=== PATIENT | female | born 1980 | race Caucasian/White ===

== ENCOUNTER 2017-10-17 08:53 | Observation (INO) | payer MEDICAID, SELFPAY ==
[~2017-10-17] VITALS: Ht 163.8 cm; Wt 84.4 kg
== END 2017-10-17 12:09 | disposition home or self-care (01) ==
LOC: SPU 08:53
PROVIDERS: ADMIT Obstetrics & Gynecology; ATTEND Obstetrics & Gynecology
DX: O48.0 Post-term pregnancy (principal); Z3A.40 40 weeks gestation of pregnancy
CPT/HCPCS: 59025; 76819; G0378

== ENCOUNTER 2017-10-20 11:20 | Observation (INO) | payer MEDICAID ==
[~2017-10-20] VITALS: Ht 162.6 cm; Wt 82.1 kg
== END 2017-10-20 13:50 | disposition home or self-care (01) ==
LOC: SPU 11:20
PROVIDERS: ADMIT Obstetrics & Gynecology; ATTEND Obstetrics & Gynecology
DX: O48.0 Post-term pregnancy (principal); Z3A.40 40 weeks gestation of pregnancy
CPT/HCPCS: 59025; 76819; 81002; G0378